=== PATIENT | female | born 1955 | race Two or more races ===

== ENCOUNTER 2025-04-07 06:21 | Day surgery (SDC) | payer OTHER ==
[2025-03-31 17:54] VITALS: BMI 20.7
[2025-04-07] MEDS ORDERED: ONDANSETRON 4 MG/2 ML VIAL IVPUSH PRN (07:19)
[2025-04-07 08:32] LABS: INR 1.1 (0.83-1.09); PROTHROMBIN TIME (PATIENT) 12.0 SEC (9.7-13.0)
[2025-04-07 08:35] LABS: ACTIVATED PTT 26.9 SECONDS (25.2-36.5)
[2025-04-07] MEDS ORDERED: ROCURONIUM BROMIDE 50 MG/5 ML SYRINGE ONE (11:43)
[2025-04-07] MEDS ORDERED: MIDAZOLAM HCL 2 MG/2 ML SINGLE DOSE VIAL ONE (11:43)
[2025-04-07] MEDS ORDERED: PROPOFOL 20 ML ONE (11:43)
[2025-04-07] MEDS ORDERED: LIDOCAINE HCL/PF 2% SDV 5ML VIAL ONE (12:07)
[2025-04-07] MEDS ORDERED: ONDANSETRON 4 MG/2 ML VIAL ONE (12:07)
[2025-04-07] MEDS ORDERED: DEXAMETHASONE SOD PHOSPHATE 4 MG/1 ML VIAL ONE (12:07)
[2025-04-07] MEDS ORDERED: GLYCOPYRROLATE 0.2 MG/1 ML VIAL ONE (12:16)
[2025-04-07] MEDS ORDERED: SUGAMMADEX SODIUM 200 MG/2 ML VIAL ONE (13:08)
[2025-04-07] MEDS ORDERED: BUPIVACAINE HCL/PF 0.5% (5MG/ML) 10 ML VIAL ONE (13:15)
[2025-04-07] MEDS ORDERED: BUPIVACAINE HCL/PF 0.25% (2.5MG/ML) 10 ML VIAL ONE (13:15)
[2025-04-07] MEDS: BUPIVACAINE HCL/PF 0.25% (2.5MG/ML) 10 ML VIAL IJ ONE (13:19)
[2025-04-07] MEDS: LACTATED RINGERS SOLUTION 1,000 ML IV SCH (14:53)
[2025-04-07 15:12] VITALS: RESP 16
[2025-04-07 17:10] VITALS: BP 120/65; PULSE 52; TEMP 97.7
== END 2025-04-07 17:30 | disposition home or self-care (01) ==
LOC: JASU-SURG 06:21
PROVIDERS: ATTEND Obstetrics & Gynecology
PROC: 0UT24ZZ Resection of Bilateral Ovaries, Percutaneous Endoscopic Approach (ICD-10-PCS; 2025-04-07)
PROC: 0UT74ZZ Resection of Bilateral Fallopian Tubes, Percutaneous Endoscopic Approach (ICD-10-PCS; principal; 2025-04-07 10:30)
DX: D27.1 Benign neoplasm of left ovary (principal); N83.8 Other noninflammatory disorders of ovary, fallopian tube and broad ligament
CPT/HCPCS: 36415; 85610; 85730; 86850; 86900; 86901; 88104; 88305-TC; 94760